=== PATIENT | female | born 1955 ===

== ENCOUNTER 2017-10-11 08:52 | Outpatient (CLI) | payer OTHER ==
[~2017-10-11 08:52] MED LIST: CELEBREX100 MG PO; ELAVIL PO; LOSARTAN-HCTZ1 EACH PO; NORVASC2.5 M1 PO; PLAQUENIL PO; PREVACID PO
== END 2017-10-11 08:57 | disposition home or self-care (01) ==
LOC: RAD 08:52
DX: M77.11 Lateral epicondylitis, right elbow (principal); R10.2 Pelvic and perineal pain; M25.561 Pain in right knee; M25.562 Pain in left knee

== ENCOUNTER 2018-06-12 08:30 | Outpatient (CLI) | payer OTHER | END 2018-06-12 08:32 | disposition home or self-care (01) | LOC: SONOGRAMA 08:30 → MAMO-SONO 09:15 | DX: S46.002A Unspecified injury of muscle(s) and tendon(s) of the rotator cuff of left shoulder, initial encounter (principal) ==

== ENCOUNTER 2019-11-28 10:19 | Outpatient (CLI) | payer OTHER | END 2019-11-28 10:27 | disposition home or self-care (01) | LOC: RAD 10:19 | PROVIDERS: ATTEND Internal Medicine Rheumatology | DX: M19.072 Primary osteoarthritis, left ankle and foot (principal) ==